=== PATIENT | male | born 1980 | race Caucasian/White ===

== ENCOUNTER → 2019-06-21 | Outpatient (CLI) | payer BC ==
--- NOTE | 2019-06-22 08:25 | USB ---
Reason for exam: clinical finding. Indicated problem(s): lump or thickening in the left breast. Physical Findings: Nurse Summary: 2.5cm circumscribed movable lump, nontender left breast, 7 o'clock, patient states palpable x 4 years (nurse TM). US Breast LT Left complete breast ultrasound includes all four quadrants, the retroareolar region and axilla. Finding demonstrates a 2.4 x 2.1 x 0.9cm oval, solid, hyperechoic lesion at 7 o'clock. Probable lipoma. These results were verbally communicated with the patient and result sheet given to the patient on 06/21/19. ASSESSMENT: Benign, BI-RAD 2 RECOMMENDATION: Clinical management of the left breast. Manage patient on a clinical basis.
== END | disposition home or self-care (01) ==
LOC: RADUSWWP 14:48
PROVIDERS: ATTEND Internal Medicine
DX: N63.24 Unspecified lump in the left breast, lower inner quadrant (principal)

== ENCOUNTER 2023-10-01 17:58 | Emergency (ER) | payer BC ==
--- NOTE | 2023-10-01 18:05 | ED ---
General Adult HPI - General Source: patient <Miguel Ho - Last Filed: 10/01/23 18:05> <Zeke Calix - Last Filed: 10/19/23 05:26> - General Stated complaint: left middle finger infection Time Seen by Provider: 10/01/23 18:00 - History of Present Illness Initial comments: 43-year-old male presenting to the ED with a chief complaint of finger pain. Patient states that he has a known nodule to his left third finger that has been there for approximately 9 months. However states he recently had it a few days ago. Since then has had increasing pain of the finger with redness and warmth area due to this, patient states that he went to urgent care who sent him here for further evaluation. Associated chills (Miguel Ho) As above this patient states that he has had a rheumatoid nodule to his left third digit for approximately 9 months. The patient states that when he was working out, he believes that he aggravated the nodule and then had some subsequ ent swelling and redness. The patient states that he slept with an ice bag on his hand and that made the dorsum of the hand red. He was concerned because when he woke there was decreased range of motion. The patient states that subsequent to that while he was waiting the range of motion has improved. The patient is declining to have any IV or lab studies. No systemic symptoms. (Zeke Gaspar) - Related Data Previous Rx's Medication Instructions Recorded Sulfamethox-Tmp 800-160Mg [Bactrim 1 each PO Q12HR #20 tab 10/01/23 Ds] Allergies Allergy/AdvReac Type Severity Reaction Status Date / Time No Known Allergies Allergy Verified 10/01/23 18:27 Review of Systems ROS Other: All systems not noted in ROS Statement are negative. <Miguel Ho - Last Filed: 10/01/23 18:05> ROS Other: All systems not noted in ROS Statement are negative. <Zeke Calix - Last Filed: 10/19/23 05:26> ROS Statement: Those systems with pertinent positive or pertinent negative responses have been documented in the HPI. General Exam General appearance: alert Extremities exam: Present: other (Nodule on left third finger with some warmth) Back exam: Present: normal inspection Neurological exam: Present: alert <Miguel Ho - Last Filed: 10/01/23 18:05> General appearance: alert Extremities exam: Present: normal inspection, normal capillary refill Left Forearm Wrist exam: Present: normal inspection, full ROM. Absent: tenderness, swelling Hand Wrist exam: Present: other (Patient has approximately 1 cm x 1.5 cm nodule to the palmar aspect of the third digit over the second IP joint. There is some mild erythema. There is some mild tenderness. No drainage.) Vascular: Present: normal capillary refill. Absent: vascular compromise, Pallo Neurological exam: Present: alert. Absent: motor sensory deficit Skin exam: Present: warm, dry, intact, normal color. Absent: rash <Zeke Calix - Last Filed: 10/19/23 05:26> Course Vital Signs 10/01/23 18:24 Temperature 98.8 F Pulse Rate 81 Respiratory 16 Rate Blood Pressure 137/86 O2 Sat by Pulse 97 Oximetry Medical Decision Making <Miguel Ho - Last Filed: 10/01/23 18:05> <Zeke Calix - Last Filed: 10/19/23 05:26> - Medical Decision Making Quicknote portion performed. Signed Miguel Ho PA-C (Miguel Ho) Patient has known rheumatoid nodule to the third digit which has had an increase in swelling. There was decreased range of motion but the patient states that this is now back at the baseline he has had. There is mild erythema and at this point will start antibiotic and have the patient follow with Dr. Hanna in the clinic as soon as possible to have reevaluation. Should the patient develop any further symptoms any increase in erythema and swelling, decreased range of motion, pain or tenderness, or systemic symptoms, we'll have the patient return to emergency department. Was pt. sent in by a medical professional or institution (, PA, JAPANESE TUTOR, urgent care, hospital, or half-way...) When possible be specific @ -Patient was directed here from urgent care Did you speak to anyone other than the patient for history (EMS, parent, family, police, friend...)? What history was obtained from this source @ -[No] Did you review nursing and triage notes (agree or disagree)? Why? @ -[I reviewed and agree with nursing and triage notes] Were old charts reviewed (outside hosp., previous admission, EMS record, old EKG, old radiological studies, urgent care reports/EKG's, half-way records)? Report findings @ -[No old charts were reviewed] Differential Diagnosis (chest pain, altered mental status, abdominal pain women, abdominal pain men, vaginal bleeding, weakness, fever, dyspnea, syncope, headache, dizziness, GI bleed, back pain, seizure, CVA, palpatations, mental health, musculoskeletal)? @ -[Differential Musculoskeletal Muscular strain, contusion, ligament sprain, fracture, arthritis, septic arthri tis, bursitis, cellulitis, muscle spasm, nerve compression, DVT, arterial occlusion, herpes zoster, electrolyte abnormality, tumor.... This is not meant to be in all inclusive list EKG interpreted by me (3pts min.). @ -[As above] X-rays interpreted by me (1pt min.). @ -[None done] CT interpreted by me (1pt min.). @ -[None done] U/S interpreted by me (1pt. min.). @ -[None done] What testing was considered but not performed or refused? (CT, X-rays, U/S, labs)? Why? @ -[None] What meds were considered but not given or refused? Why? @ -[None] Did you discuss the management of the patient with other professionals (professionals i.e. , PA, [employer]ESE TUTOR, lab, RT, psych nurse, healthcare social worker, life insurance agent, teacher, hydrographical technical officer, director of casework department)? Give summary @ -[No] Was smoking cessation discussed for >3mins.? @ -[No] Was critical care preformed (if so, how long)? @ -[No] Were there social determinants of health that impacted care today? How? (Homelessness, low income, unemployed, alcoholism, drug addiction, transportation, low edu. Level, literacy, decrease access to med. care, [facility], rehab)? @ -[No] Was there de-escalation of care discussed even if they declined (Discuss DNR or withdrawal of care, Hospice)? DNR status @ -[No] What co-morbidities impacted this encounter? (DM, HTN, Smoking, COPD, CAD, Cancer, CVA, ARF, Chemo, Hep., AIDS, mental health diagnosis, sleep apnea, morbid obesity)? @ -[None] Was patient admitted / discharged? Hospital course, mention meds given and route, prescriptions, significant lab abnormalities, going to OR and other pertinent info. @ -[As above Undiagnosed new problem with uncertain prognosis? @ -[No] Drug Therapy requiring intensive monitoring for toxicity (Heparin, Nitro, Insulin, Cardizem)? @ -[No] Were any procedures done? @ -[No] Diagnosis/symptom? @ -[Acute finger infection Acute, or Chronic, or Acute on Chronic? @ -[Acute Uncomplicated (without systemic symptoms) or Complicated (systemic symptoms)? @ -[Uncomplicated Side effects of treatment? @ -[No] Exacerbation, Progression, or Severe Exacerbation? @ -[No] Poses a threat to life or bodily function? How? (Chest pain, [place], ID, pneumonia, PE, COPD, DKA, ARF, appy, cholecystitis, CVA, Diverticulitis, Homicidal, Suicidal, threat to staff... and all critical care pts) @ -[No] (Zeke Calix) Disposition <Miguel Ho - Last Filed: 10/01/23 18:05> Is patient prescribed a controlled substance at d/c from ED?: No <Zeke Calix - Last Filed: 10/19/23 05:26> Clinical Impression: Finger infection Disposition: HOME SELF-CARE Condition: Fair Instructions (If sedation given, give patient instructions): Cellulitis (ED) Prescriptions: Sulfamethox-Tmp 800-160Mg [Bactrim Ds] 1 each PO Q12HR #20 tab Referrals: Zev Paz MD [Primary Care Provider] - 1-2 days Alvarez Hanna DO [Doctor of Osteopathic Medicine] - 1-2 days
[2023-10-01 18:33] VITALS: BP 137/86; PULSE 81; RESP 16; TEMP 98.8
--- NOTE | 2023-10-01 19:30 | XR ---
PROCEDURE: XR hand complete LT - 3V DATE AND TIME: 10/01/2023 6:58 PM CLINICAL INDICATION: PHH; L 3rd finger nodule + infection r/o osteo TECHNIQUE: Department protocol COMPARISON: None FINDINGS: There is massive soft tissue swelling involving the middle finger, particularly in its proximal and m iddle thirds; etiology unclear. There are no radiopaque foreign bodies. No bone erosions or other focal bone findings. No middle finger joint abnormality. No fracture or mal alignment. IMPRESSION: Prominent soft tissue swelling.
[2023-10-01] MEDS ORDERED: SULFAMETH-TMP DS STARTER PACK 2 TAB BTL PO STA (21:53)
== END 2023-10-01 22:09 | disposition home or self-care (01) ==
LOC: EC 17:58
DX: L08.9 Local infection of the skin and subcutaneous tissue, unspecified (principal)
CPT/HCPCS: 99283